=== PATIENT | female | born 1975 | race Caucasian/White ===

== ENCOUNTER 2024-12-15 08:56 | Emergency (ER) | payer OTHER ==
[~2024-12-15] VITALS: Ht 152.4 cm; Wt 112.9 kg
[2024-12-15] MEDS ORDERED: Methocarbamol 500 MG Tab PO ONE (09:15)
[2024-12-15] MEDS ORDERED: Ketorolac Tromethamine 30mg Vial IM ONE (09:15)
[2024-12-15] MEDS ORDERED: Lidocaine 4% 1 Patch TOP ONE (09:15)
[2024-12-15] MEDS ORDERED: Robaxin750 MG PO (09:35)
[2024-12-15] MEDS ORDERED: LIDO700A20 TOP (09:35)
== END 2024-12-15 09:57 | disposition home or self-care (01) ==
LOC: ER 08:56
DX: M54.42 Lumbago with sciatica, left side (principal); Z91.410 Personal history of adult physical and sexual abuse; Z59.19 Other inadequate housing
CPT/HCPCS: 96372; 99283-25; A9270; J1885